=== PATIENT | male | born 1960 | race Caucasian/White ===

== ENCOUNTER → 2024-01-25 14:44 | Outpatient (REF) | payer BC, SELFPAY | LOC: HWRAD 14:44 | PROVIDERS: ATTENDING PHYSICIAN Family Medicine; FAMILY PHYSICIAN Nurse Practitioner Primary Care | DX: R10.84 Generalized abdominal pain (principal); R63.4 Abnormal weight loss; K52.9 Noninfective gastroenteritis and colitis, unspecified; Z85.048 Personal history of other malignant neoplasm of rectum, rectosigmoid junction, and anus | CPT/HCPCS: 74177; Q9967 ==

== ENCOUNTER → 2024-03-13 07:39 | Outpatient (REF) | payer BC, SELFPAY | LOC: MRI 3T 07:39 | PROVIDERS: ATTENDING PHYSICIAN Internal Medicine Gastroenterology; FAMILY PHYSICIAN Nurse Practitioner Primary Care | DX: R93.89 Abnormal findings on diagnostic imaging of other specified body structures (principal) | CPT/HCPCS: 72197; 74183; A9575 ==

== ENCOUNTER → 2024-04-04 06:36 | Day surgery (SDC) | payer BC, SELFPAY | LOC: GI 06:36 | PROVIDERS: ATTENDING PHYSICIAN Internal Medicine Gastroenterology; FAMILY PHYSICIAN Nurse Practitioner Primary Care | DX: K44.9 Diaphragmatic hernia without obstruction or gangrene (principal); K31.89 Other diseases of stomach and duodenum; R14.0 Abdominal distension (gaseous); R10.10 Upper abdominal pain, unspecified | CPT/HCPCS: 43239; 88305; 88342 ==

== ENCOUNTER → 2024-08-30 15:20 | Outpatient (REF) | payer BC, SELFPAY | LOC: RAD 15:20 | PROVIDERS: ATTENDING PHYSICIAN Nurse Practitioner Primary Care | DX: M25.512 Pain in left shoulder (principal); V19.9XXA Pedal cyclist (driver) (passenger) injured in unspecified traffic accident, initial encounter | CPT/HCPCS: 73030 ==

== ENCOUNTER 2025-03-11 15:51 | Emergency (ER) | payer BC, SELFPAY ==
[2025-03-11 15:58] VITALS: BP 119/65
--- NOTE | 2025-03-11 15:58 | ED.GENMED ---
ED Provider Triage
<Kizzy Cyr PA-C - Last Filed: 03/11/25 16:08>
-
Attestation: A medical screening examination has been initiated by a qualified medical provider. Based on the assessment performed at this time, it has been determined that an emergent medical condition may exist and the patient has been informed
that further medical evaluation and possible additional diagnostic testing may be needed.
HPI: 64-year-old male presenting to the emergency department with multiple complaints. States he woke up with a headache which has since improved. However�he then had multiple episodes of nausea and vomiting and became very anxious. He felt his
heart started to race and felt that he may be having a panic attack. Patient's gave him half of one of her Xanax which did improve symptoms. He denies any chest pain or back pain. He denies any fever, chills, or abdominal pain.Patient denies
any past history of anxiety.
GENERAL: Anxious appearing.
EYE: No visual abnormalities.
NECK: Trachea midline
ENT: No visible abnormalities.
LUNGS: No acute respiratory distress
NEUROLOGICAL: Alert and oriented
SKIN: Skin intact. No visible changes.
MUSCULOSKELETAL: Moving extremities normally
PSYCH: Normal and appropriate interaction.
Will send screening labs, EKG , Viral studies.
This is a medical evaluation conducted in person to initiate diagnostic evaluation and provide initial therapeutics. Please see further documentation by the treating clinician.
History of Present Illness
<Kizzy Cyr PA-C - Last Filed: 03/11/25 16:08>
General
Chief Complaint: Dizziness
Time Seen by Provider: 03/11/25 19:29
<Jerome Manuel DO - Last Filed: 03/11/25 22:23>
History of Present Illness
History of Present Illness:
TIME OF INITIAL ENCOUNTER: 7:35 PM
HPI: Patient woke with a headache that is been improving. He used to have headaches and was placed on a medication a few years ago but is no longer taking that medication. He reports having normal neuroimaging at that time. He did develop nausea
and vomiting later in the day and also developed the anxiety attack. His anxiety was severe to the point that he was shaking in his significant other gave him a third of a 0.25 mg Xanax. His symptoms continue to improve by the time he got here.
She also noted that his significant other states that he may be dehydrated as he vomited a significant amount earlier. His heart rate was 44 earlier today. He has no abdominal pain.
EXAM:
GENERAL: Well appearing in no distress, but he appears somewhat weak
HEENT: Slightly dry oral mucosa
CARDIOVASCULAR: No murmurs, normal heart rate, regular rhythm, No chest wall tenderness
PULMONARY: No respiratory distress, breath sounds are clear and equal
ABDOMEN: Soft with no peritoneal signs, no tenderness
NEUROLOGIC: Excellent strength all extremities, no coordination deficits
PSYCHIATRIC: Appropriate mental status, normal insight and judgement, does not necessarily appear anxious currently
EXTREMITIES: Nontender, no edema, moves all extremities equally
SKIN: No rash, no lesions
NUMBER AND COMPLEXITY OF PROBLEMS ADDRESSED AT THE ENCOUNTER
� Chronic conditions affecting care: Colorectal cancer
� Acute Exacerbation and/or Progression of Chronic Illness: This is an acute problem
� Differential Diagnosis includes: Dehydration, acute anxiety attack, anemia, electrolyte abnormality, thyroid disease who is which patient is a patient third
AMOUNT AND/OR COMPLEXITY OF DATA TO BE REVIEWED AND ANALYZED
� I performed an independent evaluation of and my interpretation is:
EKG: Sinus 66, nonspecific ST abnormality, borderline LVH
CT: CT brain shows no acute abnormality
X-rays:
Laboratory Studies: White count and hemoglobin are normal, bicarb is 21, chemistries unremarkable
Other:
� Review of other/old records: I reviewed records, the patient had upper endoscopy with Dr. Saucedo 1 year ago
� Clinical information was obtained by an independent historian: I spoke to significant other at bedside
� Prescriptions/Medications Considered but not given:
� Further testing considered but not performed:
RISK OF COMPLICATIONS AND/OR MORBIDITY OR MORTALITY OF PATIENT MANAGEMENT
� Social determinants of health affecting care: Lives at home
� Discussion with other providers:
� Escalation of care including admission/observation vs risk of discharge considered: The patient had a headache and then developed rather severe panic attack. He currently feels improved spontaneously. Will give IV fluids and
also check head CT.
ANY OTHER UPDATES:
8:15 PM: The patient had another episode and appeared to be having an anxiety attack. Ativan was given.
10:20 PM: I reassessed patient. Some mild anxiety persists. Will give short course of Xanax as outpatient.
Phy Exam
<Jerome Manuel DO - Last Filed: 03/11/25 22:23>
Physical Exam
Physical Exam:
See HPI
Course
<Kizzy Cyr PA-C - Last Filed: 03/11/25 16:08>
Orders/Labs/Results
Orders:
Orders
03/11/25 16:04
Electrocardiogram (*1) Urgent
Reason for Study: Shortness of Breath
EKG- Treatment ONCE
03/11/25 18:31
COVID-19 Antigen Urgent
Source: Nasal Swab
Complete Blood Count/With Diff Urgent
Comprehensive Metabolic Panel Urgent
TSH Reflex To Free T4 Urgent
Influenza A+B Rapid Molecular Urgent
ERASMO Source: Nasal Swab
Specimen Description:
03/11/25 19:40
CT Head W/o Iv Contrast Urgent
Comment:
Reason For Exam: new JOVEL and dizzy
0.9% Sodium Chloride 1000 ml [Nss] 1,000 ml IV BOLUS
03/11/25 20:05
Lorazepam [Ativan] 1 mg IV NOW STA
Lorazepam [Ativan] [address]
Abnormal Lab Results
03/11/25
18:31
Absolute Neuts (auto) 8.3 H 10^3/uL
(1.4-6.5)
Absolute Lymphs (auto) 0.9 L 10^3/uL
(1.2-3.4)
Neutrophils % 85.1 H %
(42.2-75.2)
Lymphocytes % 9.2 L %
(20.5-51.1)
Carbon Dioxide 21 L mmol/L
(22-30)
BUN 24 H mg/dl
(9-20)
Glucose 134 H mg/dl
(70-99)
03/11/25 18:31
03/11/25 18:31
Vital Signs
Initial and Last Documented VS:
Initial Vital Signs
Temp Pulse Resp BP Pulse Ox
36.4 C 74 16 119/65 100
03/11/25 15:58 03/11/25 15:58 03/11/25 15:58 03/11/25 15:58 03/11/25 15:58
Last Documented Vital Signs
Temp Pulse Resp BP Pulse Ox
36.4 C 67 13 178/91 100
03/11/25 15:58 03/11/25 21:15 03/11/25 21:15 03/11/25 21:03 03/11/25 21:15
Makilt;Jerome Manuel, DO - Last Filed: 03/11/25 22:23>
Orders/Labs/Results
Orders:
Orders
03/11/25 16:04
Electrocardiogram (*1) Urgent
Reason for Study: Shortness of Breath
EKG- Treatment ONCE
03/11/25 18:31
COVID-19 Antigen Urgent
Source: Nasal Swab
Complete Blood Count/With Diff Urgent
Comprehensive Metabolic Panel Urgent
TSH Reflex To Free T4 Urgent
Influenza A+B Rapid Molecular Urgent
ERASMO Source: Nasal Swab
Specimen Description:
03/11/25 19:40
CT Head W/o Iv Contrast Urgent
Comment:
Reason For Exam: new JOVEL and dizzy
0.9% Sodium Chloride 1000 ml [Nss] 1,000 ml IV BOLUS
03/11/25 20:05
Lorazepam [Ativan] 1 mg IV NOW STA
Lorazepam [Ativan] 2 mg .ROUTE .[facility]
Abnormal Lab Results
03/11/25
18:31
Absolute Neuts (auto) 8.3 H 10^3/uL
(1.4-6.5)
Absolute Lymphs (auto) 0.9 L 10^3/uL
(1.2-3.4)
Neutrophils % 85.1 H %
(42.2-75.2)
Lymphocytes % 9.2 L %
(20.5-51.1)
Carbon Dioxide 21 L mmol/L
(22-30)
BUN 24 H mg/dl
(9-20)
Glucose 134 H mg/dl
(70-99)
03/11/25 18:31
03/11/25 18:31
Vital Signs
Initial and Last Documented VS:
Initial Vital Signs
Temp Pulse Resp BP Pulse Ox
36.4 C 74 16 119/65 100
03/11/25 15:58 03/11/25 15:58 03/11/25 15:58 03/11/25 15:58 03/11/25 15:58
Last Documented Vital Signs
Temp Pulse Resp BP Pulse Ox
36.4 C 67 13 178/91 100
03/11/25 15:58 03/11/25 21:15 03/11/25 21:15 03/11/25 21:03 03/11/25 21:15
<Jerome Manuel DO - Last Filed: 03/11/25 22:23>
*Critical Care Note
Total Time (30-74mins, 75-104mins- exclusive of procedures): Not Applicable
ED Attending Note
<Kizzy Cyr PA-C - Last Filed: 03/11/25 16:08>
-
Portions of this chart may have been created with voice recognition software.� Occasional wrong word or��sound alike� substitutions may have occurred due to the inherent limitations of voice recognition software.
Discharge Plan
Departure
Referrals:
Zoraida River CRNP [Family Provider] -
Interventions
Interventions:
*Risk Screen - Suicide Last Done: 03/11/25 18:59
*General Assessment Last Done: 03/11/25 20:56
*Neglect/Abuse Screening Last Done: 03/11/25 18:59
*ED- Fall Risk Assessment Last Done: 03/11/25 20:56
*ED COVID-19 Vaccine History Last Done: 03/11/25 18:59
ED- Neurological Assessment Last Done: 03/11/25 18:58
Discharge Date and Time
Print Language: SERBIAN
[2025-03-11 18:40] LABS: % Basophils 0.2 % (0-2); % Eosinophils 0.1 % (0-6); % Immature Granulocytes 0.3 % (0-0.5); % Lymphocytes 9.2 % (20.5-51.1); % Monocytes 5.1 % (1.7-9.3); % Neutrophils 85.1 % (42.2-75.2); Absolute Lymphocytes 0.9 10^3/uL (1.2-3.4); Absolute Monocytes 0.5 10^3/uL (0.1-0.6); Absolute Neutrophils 8.3 10^3/uL (1.4-6.5); Hemoglobin 15.3 g/dL (13.0-18.0); Mean Corpuscular Hgb 29.4 pg (27.0-31.0); Mean Corpuscular Volume 86.5 fL (80.0-94.0); Mean Platelet Volume 9.8 fL (7.4-10.4); Nucleated Red Blood Cells % 0 % (-); Platelet Count 278 10^3/uL (130-400); White Blood Cell Count 9.8 10^3/uL (4.8-10.8)
[2025-03-11 18:59] LABS: AST (SGOT) 27 U/L (17-59); Albumin 4.7 g/dl (3.5-5.0); Alkaline Phosphatase 79 U/L (38-126); Blood Urea Nitrogen 24 mg/dl (9-20); Calcium 10.1 mg/dl (8.4-10.2); Carbon Dioxide 21 mmol/L (22-30); Chloride 102 mmol/L (98-107); Glucose 134 mg/dl (70-99); Potassium 3.6 mmol/L (3.5-5.1); Sodium 139 mmol/L (135-145); Total Bilirubin 0.6 mg/dl (0.2-1.3); eGFR > 60.00
[2025-03-11 19:02] LABS: COVID-19 Antigen Negative (Negative)
[2025-03-11 19:31] LABS: TSH Reflex To Free T4 2.42 uIU/ml (0.47-4.68)
[2025-03-11 19:50] LABS: ALT (SGPT) 23 U/L (0-50)
[2025-03-11] MEDS: NSS 1000 IV (20:09)
[2025-03-11] MEDS: ATIVAN 1 MG IV (20:09)
[2025-03-11 20:13] VITALS: BP 136/68
[2025-03-11 21:00] VITALS: BP 115/62
[2025-03-11 21:03] VITALS: BP 178/91
[2025-03-11 22:00] VITALS: BP 131/78
== END 2025-03-11 22:40 | disposition home or self-care (01) ==
LOC: EMR 15:51
PROVIDERS: Physician Assistant; EMERGENCY PHYSICIAN Emergency Medicine; FAMILY PHYSICIAN Nurse Practitioner Primary Care
DX: R51.9 Headache, unspecified (principal); R06.02 Shortness of breath; R11.2 Nausea with vomiting, unspecified; R42 Dizziness and giddiness; Z11.52 Encounter for screening for COVID-19; F41.9 Anxiety disorder, unspecified; F41.0 Panic disorder [episodic paroxysmal anxiety]; Z85.038 Personal history of other malignant neoplasm of large intestine
CPT/HCPCS: 99284; 96374; 96361; 70450; 80053; 84443; 85025; 87502; 87811; 93005